=== PATIENT | female | born 1995 | race Caucasian/White ===

== ENCOUNTER 2021-06-02 11:18 | Emergency (ER) | payer MEDICAID ==
[~2021-06-02] VITALS: Ht 157.5 cm; Wt 75.0 kg
[2021-06-02 11:47] VITALS: BP 114/71
[2021-06-02] MEDS ORDERED: CEFTRIAXONE SODIUM 1 G/VIAL IM ONE (12:00)
[2021-06-02] MEDS ORDERED: LIDOCAINE HCL 1% 20ML VIAL (Pyxis) INJ INFIL ONE (12:00)
[2021-06-02] MEDS ORDERED: AZIT1PAC9 MT (13:27)
[2021-06-07 04:08] LABS: NEISSERIA GONORRHOEAE NAA Negative (Negative)
== END 2021-06-02 14:02 | disposition home or self-care (01) ==
LOC: ER 11:46
DX: Z11.3 Encounter for screening for infections with a predominantly sexual mode of transmission (principal); Z20.2 Contact with and (suspected) exposure to infections with a predominantly sexual mode of transmission
CPT/HCPCS: 87491; 87591; 96372; 99283; J0696; J3490

== ENCOUNTER 2022-10-07 02:03 | Emergency (ER) | payer MEDICAID ==
[~2022-10-07] VITALS: Ht 157.5 cm; Wt 76.6 kg
[~2022-10-07 02:03] MED LIST: AZIT1PAC9 MT
[2022-10-07 02:07] VITALS: BP 112/62; TEMP 98.2; O2SAT 99
[2022-10-07 02:08] VITALS: PULSE 70
[2022-10-08] MEDS ORDERED: FLUT9.9S BOTHNSTRLS (01:52)
[2022-10-08] MEDS ORDERED: PSEU120T56 MT (01:52)
== END 2022-10-07 05:53 | disposition left against medical advice (07) ==
LOC: ER 02:03
DX: Z53.21 Procedure and treatment not carried out due to patient leaving prior to being seen by health care provider (principal)
CPT/HCPCS: 99281

== ENCOUNTER 2022-10-07 22:35 | Emergency (ER) | payer MEDICAID, OTHER ==
[~2022-10-07] VITALS: Ht 157.5 cm; Wt 76.4 kg
[2022-10-07 22:45] VITALS: BP 116/59; O2SAT 100
[2022-10-08] LABS: CHLORIDE 109 mEq/L (98-107)
[2022-10-08 00:02] LABS: BASOPHILS % 0.6 % (0.0-2.0); EOSINOPHILS % 2.2 % (0.0-5.0); HEMATOCRIT. 38.9 % (36.0-48.0); HEMOGLOBIN. 13.6 g/dL (12.0-16.0); LYMPHOCYTES % 31.7 % (20.0-50.0); MEAN CORPUSCULAR HEMOGLOBIN 28.8 pg (28.0-32.0); MEAN CORPUSCULAR VOLUME 82.1 fL (81.0-99.0); MEAN PLATELET VOLUME 8.9 fl (7.4-10.4); MONOCYTES % 7.7 % (2.0-8.0); NEUTROPHILS % 57.8 % (40.0-76.0); PLATELET 267 x1000/uL (130-400); RED BLOOD CELL COUNT 4.74 mill/uL (4.2-5.4); RED CELL DISTRIBUTION WIDTH 14.7 % (11.6-14.6)
[2022-10-08] MEDS ORDERED: PSEU120T56 MT (01:52)
[2022-10-08] MEDS ORDERED: FLUT9.9S BOTHNSTRLS (01:52)
[2022-10-08 02:17] VITALS: PULSE 72; RESP 19; TEMP 98
== END 2022-10-08 02:10 | disposition home or self-care (01) ==
LOC: ER 22:37
DX: H81.13 Benign paroxysmal vertigo, bilateral (principal); H65.93 Unspecified nonsuppurative otitis media, bilateral
CPT/HCPCS: 36415; 80053; 81025; 85025; 99283